=== PATIENT | male | born 1950 | race Caucasian/White ===

== ENCOUNTER → 2020-02-25 09:13 | Outpatient (BNVA) | payer MEDICARE, SELFPAY | PROVIDERS: Visit Provider Nurse Practitioner | DX: S81.001A Unspecified open wound, right knee, initial encounter (principal); X58.XXXA Exposure to other specified factors, initial encounter | CPT/HCPCS: 73562 ==

== ENCOUNTER 2020-06-10 13:12 | Outpatient (CLI) | payer MEDICARE, SELFPAY | END 2020-06-10 13:13 | disposition home or self-care (01) | PROVIDERS: Visit Provider Emergency Medicine | DX: E11.622 Type 2 diabetes mellitus with other skin ulcer (principal); L97.812 Non-pressure chronic ulcer of other part of right lower leg with fat layer exposed | CPT/HCPCS: G0463 ==

== ENCOUNTER 2020-08-31 09:16 | Outpatient (CLI) | payer MEDICARE, SELFPAY ==
--- NOTE | 2020-08-31 09:30 | USCV_ITS ---
Chet Medina Age: 70 Gender: M : 1950 Exam Date: 08/31/2020 09:53 Ordering Phys: Eli Ramirez MD ([email or web address]) Technologist: Jeromy Sanabria [place] [facility] [place] Indication: SOB AND OLD NV BP: 121 / 67 HR: 66 Rhythm: Sinus Technical Quality: Adequate MEASUREMENTS (Male / Female) Normal Values 2D ECHO LV Diastolic Diameter PLAX 4.2 cm 4.2 - 5.9 / 3.9 - 5.3 cm LV Systolic Diameter PLAX 2.1 cm IVS Diastolic Thickness 0.9 cm 0.6 - 1.0 / 0.6 - 0.9 cm IVS Systolic Thickness 1.4 cm LVPW Diastolic Thickness 1.0 cm 0.6 - 1.0 / 0.6 - 0.9 cm LVPW Systolic Thickness 1.3 cm LVOT Diameter 2.0 cm LV Ejection Fraction 2D Teich 80.7 % LV Ejection Fraction MOD 2C 71.2 % LV Ejection Fraction 2C AL 71.5 % LA Diameter 2.9 cm LA Width 3.7 cm LA Height 3.5 cm RA Width 3.3 cm RA Height 3.5 cm M-MODE LV Diastolic Diameter MM 6.1 cm 4.2 - 5.9 / 3.9 - 5.3 cm LV Systolic Diameter MM 4.4 cm LV Ejection Fraction MM Teich 53.7 % IVS Diastolic Thickness MM 1.1 cm 0.6 - 1.0 / 0.6 - 0.9 cm IVS Systolic Thickness MM 1.4 cm LVPW Diastolic Thickness MM 0.9 cm 0.6 - 1.0 / 0.6 - 0.9 cm LVPW Systolic Thickness MM 1.5 cm RV Diastolic Diameter MM 2.1 cm Aortic Annulus Diameter 3.3 cm LA Ao Ratio MM 0.9 MV E Point Septal Separation 0.7 cm DOPPLER AV Peak Velocity 80.0 cm/s LVOT Peak Velocity 99.0 cm/s AV Area Cont Eq vti 4.2 cm squared AV Area Cont Eq pk 3.9 cm squared MV Area PHT 4.3 cm squared Mitral E to A Ratio 0.7 MV E' Velocity 34.5 cm/s Mitral E to MV E' Ratio 6.4 Mitral E to LV E' Lateral Ratio 5.7 Mitral E to LV E' Septal Ratio 7.4 TR Peak Velocity 138.7 cm/s TR Peak Gradient 7.7 mmHg TV Peak E Velocity 69.0 cm/s Right Atrial Pressure 3.0 mmHg Pulmonary Artery Systolic Pressu 10.7 mmHg PV Peak Velocity 103.0 cm/s FINDINGS Left Ventricle Normal left ventricular size and systolic function, EF 69 %. No regional wall motion abnormalities. Mild left ventricular hypertrophy. Grade I/IV diastolic dysfunction (abnormal relaxation filling pattern), normal to mildly elevated filling pressures. Right Ventricle The right ventricle is normal in size and function. Right Atrium The right atrium is normal in size. Left Atrium No gross abnormalities noted Mitral Valve No gross abnormalities noted Aortic Valve No gross abnormalities noted Tricuspid Valve No gross abnormalities noted Pulmonic Valve Structurally normal pulmonic valve without significant stenosis. There is no pulmonic regurgitation. Pericardium No pericardial effusion. Aorta Normal ascending aorta dimension. CONCLUSIONS Normal left ventricular size and systolic function, EF 69 %. No regional wall motion abnormalities. Mild left ventricular hypertrophy. Grade I/IV diastolic dysfunction (abnormal relaxation filling pattern), normal to mildly elevated filling pressures. No intracardiac masses. No pericardial effusion. No similar previous studies are available for comparison Dr Eli Ramirez MD [facility] (Electronically Signed) Final Date: 31 August 2020 17:12 S
--- NOTE | 2020-08-31 10:15 | USCV_ITS ---
Chet Medina Age: 70 Gender: M : 1950 Exam Date: 08/31/2020 09:38 Ordering Phys: Eli Ramirez MD ([email or web address]) Technologist: Jeromy Sanabria [place] [facility] [place]: CVA Risk Factors: Previous Vascular Surgery: Right Brachial BP: / Left Brachial BP: / Right Left Velocity (cm/s) Spectral Plaque Velocity (cm/s) Spectral Plaque Syst/Diast Broadening Syst/Diast Broadening 80.35/ 18.15 Prox CCA 65.10 / 20.60 67.50/ 16.40 Mid CCA 60.10 / 17.30 68.80/ 13.60 Distal CCA 62.60 / 17.30 52.80/ 10.60 Prox ICA 126.20/ 28.50 76.80/ 19.20 Mid ICA 100.70/ 31.50 84.50/ 19.20 Distal ICA 109.70/ 36.10 96.00 ECA 142.70 1.23 ICA/CCA 1.94 Antegrade Vertebral Antegrade 39.50/ 12.30 cm/s 83.60/ 22.10 cm/s Tri Subclavian Tri 94.70 47.60 FINDINGS Mild to moderate heterogeneous plaques at the right bifurcation. Mild to moderate scattered plaques in the common carotid artery on the right side. Moderate to heavy heterogeneous plaques at the left bifurcation and proximal internal carotid artery Mild to moderate scattered plaques in the common carotid artery on the left side Antegrade flow in the vertebral arteries bilaterally. CONCLUSIONS Mild to moderate heterogeneous plaques at the right bifurcation with elevated velocity ratio suggestive of 16-49 % stenosis. Moderate to heavy heterogeneous plaques at the left bifurcation and proximal internal carotid arterywith velocity elevation consistent with 50-79% stenosis. Mild to moderate scattered plaques in the common carotid arteries bilaterally No previous studies are available for comparison. Dr Eli Ramirez MD [facility] (Electronically Signed) Final Date: 31 August 2020 19:34 S
== END 2020-08-31 09:17 | disposition home or self-care (01) ==
PROVIDERS: PCP Internal Medicine; Visit Provider Internal Medicine Cardiovascular Disease
DX: I63.9 Cerebral infarction, unspecified (principal); I65.23 Occlusion and stenosis of bilateral carotid arteries; I25.2 Old myocardial infarction; R06.02 Shortness of breath; I51.81 Takotsubo syndrome
CPT/HCPCS: 93306; 93880

== ENCOUNTER 2020-11-23 08:59 | Outpatient (CLI) | payer MEDICARE, SELFPAY ==
[2020-11-23 09:20] VITALS: BMI 18.9
--- NOTE | 2020-11-23 09:24 | ECG_ITS ---
[facility] Test Date: 2020-11-23 Pat Name: Chet Medina Department: Room: Gender: Male : : 1950 Requested By: Eli Ramirez Order Number: [id number] Dileep MD: Eli Ramirez M.D. Interpretive Statements NAME OF STUDY: LEXISCAN SESTAMIBI STRESS TEST INDICATION: Old Myocardial Infarction, PROCEDURE: At the baseline, the EKG revealed normal sinus rhythm with some nonspecific ST-T changes.. The baseline blood pressure was 181/112 mm Hg with a heart rate of 70 beats/min. Lexiscan was infused over a period of 20 seconds. A total of 0.4 milligrams of Lexiscan was infused. The stress phase was continued for a total of 5 minutes. Heart rate at the end of the stress phase was 79 with a blood pressure 161/79. The EKG at the peak infusion revealed some nonspecific changes. Sestamibi was injected 20 seconds after the Lexiscan infusion. Blood pressure at the end of the recovery phase was 152/84 with a heart rate of 77 per minute. CONCLUSION: 1. Nonspecific EKG changes with the LexiScan infusion 2. No LexiScan induced chest pain or cardiac arrhythmia 3. Normal blood pressure and heart rate response 4. Sestamibi/sestamibi perfusion scan pending; see separate report. Electronically Signed On 11-23-2020 15:46:54 LINK MACHINE OPERATOR by Eli Ramirez M.D. [id number]
--- NOTE | 2020-11-23 09:25 | NMCV_ITS ---
NM faustino perf SPECT r/s* [id number] Chet Medina Age: 70 Gender: M : 1950 Exam Date: 11/23/2020 10:46 Ordering Phys: Eli Ramirez MD ([email or web address]) Technologist: TWYLA Rodriguez Exam Location: [facility] Indications: ABNORMAL EKG STRESS TEST Please [facility] for [facility] IMAGE PROTOCOL Rest/Stress 1 Lexiscan Day Radiopharmaceutical Dose (mCi) Administration Site Administered by Rest: Tc-99m 11.0 IV TWYLA Rodriguez Sestamibi Stress:Tc-99m 32.6 IV TWYLA Nayak Sestamibi Rest: 23-Nov-2020 60 Discovery 630 Stress: 23-Nov-2020 30 Discovery 630 0.4mg Lexiscan. Images obtained in supine and prone position. SPECT RESULTS Technical Quality: Good Raw Data Analysis: Normal Image Corrections: No attenuation or motion correction applied Summed Stress Score: 9 Summed Rest Score: 4 Summed Difference Score: 7 PERFUSION FINDINGS Moderate area of moderately severe decreased tracer uptake were noted in the mid and apical inferior, mid inferoseptal, mid inferolateral, apical lateral and apical septal segments. Some reversibility was noted in all the segments with the supine imaging. However the prone imaging, no significant reversible defects were noted. FUNCTIONAL RESULTS (calculated via Gated SPECT) Stress Image LV EF (%): 74 Stress EDV (mL):78 TID: 0.94 Stress ESV (mL):20 FUNCTIONAL FINDINGS: Segmental wall motion analysis revealing no gross wall motion normalities. IMPRESSIONS 1. Myocardial perfusion imaging revealing moderate area of inconsistent reversible defect in the inferolateral, inferoseptal and apical regions, most likely represent attenuation artifact. 2. Normal LV ejection fraction of 74%. 3. LV wall motion analysis revealing no gross wall motion abnormalities. 4. Normal LV volume. Possibly no significant coronary ischemia, based on the above findings. However clinical correlation is recommended Dr Eli Ramirez MD [facility] (Electronically Signed) Final Date: 24 November 2020 02:06 S
[2020-11-23] MEDS: regadenoson 0.4 Mg/5 ml Syringe IVP (11:34)
[2020-11-23 12:00] VITALS: BP 152/84; PULSE 77
== END 2020-11-23 09:00 | disposition home or self-care (01) ==
PROVIDERS: PCP Internal Medicine; Visit Provider Internal Medicine Cardiovascular Disease
DX: R94.31 Abnormal electrocardiogram [ECG] [EKG] (principal); I25.2 Old myocardial infarction; E78.5 Hyperlipidemia, unspecified; I25.10 Atherosclerotic heart disease of native coronary artery without angina pectoris
CPT/HCPCS: 78452; 93017; A9500; J2785

== ENCOUNTER → 2021-01-01 12:08 | Outpatient (BNVA) | payer MEDICARE, SELFPAY | PROVIDERS: PCP Internal Medicine; Visit Provider Orthopaedic Surgery | DX: Z20.822 Contact with and (suspected) exposure to COVID-19 (principal); Z01.812 Encounter for preprocedural laboratory examination | CPT/HCPCS: 87635 ==

== ENCOUNTER → 2021-02-05 14:28 | Outpatient (BNVA) | payer MEDICARE, SELFPAY | PROVIDERS: PCP Internal Medicine; Visit Provider Orthopaedic Surgery | DX: Z20.822 Contact with and (suspected) exposure to COVID-19 (principal) | CPT/HCPCS: 87635 ==

== ENCOUNTER 2023-02-10 14:54 | Emergency (ER) | payer MEDICARE, SELFPAY ==
[2023-02-10 14:55] VITALS: BP 120/66; PULSE 104; RESP 16; TEMP 36.7; O2SAT 93; BMI 16.0
--- NOTE | 2023-02-10 15:23 | ED_ITS ---
Documented by User: TORIN Farmer 02/10/23 16:19 HPI - Back Pain/Injury General: Chief Complaint: Back Pain/Injury Stated Complaint: CHRONIC BACK PAIN Time Seen by Provider: 02/10/23 14:55 Source: patient and EMS Mode of arrival: EMS Limitations: no limitations History of Present Illness: Patient is a nice 72-year-old male who presents to ED today with two separate complaints. He complains of chronic back pains. Patient reports significant previous injuries. He states he takes hydrocodone 10 mg / 325 mg as needed for pain. He has been seeing a chiropractor. He states he is out of his pain medications and it is hard to get into his PCP Dr. Cobb as he is only in office 2 days a week. Patient's other complaint is right knee pain. He states he had hardware placed in the knee for a tibial plateau fracture in 2007. He states at some point he developed a small wound on the knee and since then it has progressively opened and worsened. He states he has had exposed hardware for over a year now. In [address] Jerome as the hardware was starting to erode at that time. Plan was for surgery but patient needed cardiac clearance first. It looks like he did do all of the cardiac testing needed for surgery. Patient states when he showed up for the surgery he did not have a ride home so they canceled it. He states he has not had any further evaluations for the knee since 2019. He states the pain is getting to the point where it is making it hard to ambulate and take care of himself. MD elicited complaint: back pain and other (R knee pain) Onset (ago): year(s) Timing: constant Severity: moderate Similar Symptoms Previously: Yes Location: lumbar spine Radiation: none Associated symptoms: Reports difficulty walking (secondary to knee/back pain); Deny abdominal pain, chills, fatigue or fever(s) Treatments prior to arrival: prescription analgesics Work related injury: No Review of Systems Const: Denies: fever(s), chills, body aches, fatigue or malaise Card: Denies: chest pain Resp: Denies: dyspnea GI: Denies: abdominal pain Musc: Reports: back pain (chronic), joint pain (R knee) and limited range of motion (R knee-chronically ); Denies: neck pain, extremity pain, extremity swelling, joint swelling, joint redness or joint warmth Neuro: Reports: difficulty walking (secondary to knee/back pain); Denies: numbness in extremities, weakness in extremities or sensory changes PFSH ED PFSH: Medical History (Updated 02/10/23 @ 17:44 by TRACIE Gregory) Anticoagulant long-term use Asthma Carotid stenosis COPD (chronic obstructive pulmonary disease) with emphysema Dyslipidemia History of CVA (cerebrovascular accident) Hypertension Old myocardial infarction The EKG from 08/05/2020 revealed sinus rhythm with some nonspecific ST-T changes in the inferior leads. Normal ME and QRS duration. Surgical History History of fracture of tibia Plate and screws proximal at knee History of hernia repair History of hip surgery left History of surgery on arm left Family History Other Cancer Diabetes Hypertension Lung disease Stroke Denies family history of Dementia Social History Smoking and tobacco status: current every day smoker Second hand smoke exposure: Yes Smoking risk assessment/counseling performed?: Yes Desire information about substance/drug rehabilitation?: No Counseling given: No Adopted: No Caregiver/support person: No Lives independently: Yes Household members: none Housing: House Marital status: Single service: Yes status: Retired branch: [employer] Current occupational status: retired Current gender identity: Male Physical Exam Const: COMMON NORMALS: no acute distress, patient oriented x3, no limitations, alert and well nourished GENERAL APPEARANCE: cooperative ORIENTATION/CONSCIOUSNESS: Yes awake, Yes oriented to person, Yes oriented to place and Yes oriented to time HENMT: COMMON NORMALS: normocephalic and atraumatic HEAD & SCALP: normal to inspection, normocephalic and atraumatic Neck/C-Spine: COMMON NORMALS: full ROM GENERAL: Yes normal visual inspection Resp: COMMON NORMALS: normal respiratory effort and clear to auscultation bilaterally AUSCULTATION: clear to auscultation bilaterally Cardio: COMMON NORMALS: regular rate and regular rhythm RATE: regular rate RHYTHM: regular rhythm Back/Pelvis: THORACIC SPINE/UPPER BACK: No thoracic spinal tenderness and No paraspinal muscle tenderness LUMBAR SPINE/LOWER BACK: Yes pain with ROM, Yes lumbar spinal tenderness, Yes paraspinal muscle tenderness and Yes straight leg raise negative bilaterally Extremity: GENERAL: Yes normal exam except as noted RIGHT LOWER EXTREMITY: Yes knee joint (pt with chronic flexion deformity of knee) Right knee: Yes inspection (large portion of exposed hardware present), Yes neurovascular exam (normal) and Yes other (no drainage or significant redness) Neuro: COMMON NORMALS: patient oriented x3 SENSORIUM/ORIENTATION: Yes alert, Yes oriented to person, Yes oriented to place and Yes oriented to time Course Vital Signs: Vital signs: Vital Signs Temperature 98.1 F 02/10/23 14:55 Pulse Rate 104 H 02/10/23 14:55 Respiratory Rate 16 02/10/23 14:55 Blood Pressure 120/66 02/10/23 14:55 Pulse Oximetry 93 02/10/23 14:55 Oxygen Delivery Me thod 02/10/23 14:55 MDM - Back Pain/Injury Labs 02/10/23 17:06 02/10/23 17:06 Radiology Impressions Knee X-Ray 02/10/23 16:08 IMPRESSION: Tibial surgical appliances as above. Laboratory Results WBC 7.2 10^3/uL (4.0-10.0) 02/10/23 17:06 RBC 3.56 10^6/uL (4.1-5.3) L 02/10/23 17:06 Hgb 9.8 g/dL (11.7-16.6) L 02/10/23 17:06 Hct 30.8 % (42.0-52.0) L 02/10/23 17:06 MCV 86.5 fl (80-94) 02/10/23 17:06 MCH 27.5 pg (28.0-34.0) L 02/10/23 17:06 MCHC 31.8 g/dL (30.0-36.0) 02/10/23 17:06 RDW 14.1 % (12.1-15.1) 02/10/23 17:06 Plt Count 221 10^3/cmm (130-400) 02/10/23 17:06 MPV 11.6 fL (7.4-10.4) H 02/10/23 17:06 Neut % (Auto) 72.5 % 02/10/23 17:06 Lymph % (Auto) 18.6 % 02/10/23 17:06 [place] % (Auto) 7.1 % 02/10/23 17:06 Eos % (Auto) 0.7 % 02/10/23 17:06 Baso % (Auto) 0.4 % 02/10/23 17:06 Neut # (Auto) 5.22 10^3/uL (1.8-7.7) 02/10/23 17:06 Lymph # (Auto) 1.3 10^3/uL (0.8-4.8) 02/10/23 17:06 [place] # (Auto) 0.5 10^3/uL (0.2-0.9) 02/10/23 17:06 Eos # (Auto) 0.1 10^3/uL (0.0-0.8) 02/10/23 17:06 Baso # (Auto) 0.0 10^3/uL (0.0-0.1) 02/10/23 17:06 Nucleated RBC % (auto) 0 % 02/10/23 17:06 Nucleated RBCs # 0.0 /100WBC 02/10/23 17:06 Sodium 137 mmol/L (136-145) 02/10/23 17:06 Potassium 3.4 mmol/L (3.5-5.1) L 02/10/23 17:06 Chloride 97 mmol/L (98-107) L 02/10/23 17:06 Carbon Dioxide 27 mmol/L (22-29) 02/10/23 17:06 Anion Gap 16.4 (5-19) 02/10/23 17:06 BUN 13 mg/dL (8-23) 02/10/23 17:06 Creatinine 0.5 mg/dL (0.7-1.2) L 02/10/23 17:06 GFR Calculation Not Reportable 02/10/23 17:06 Glucose 106 mg/dL (65-115) 02/10/23 17:06 Calculated Osmolality 285 mOsm/kg (285-295) 02/10/23 17:06 Calcium 8.8 mg/dL (8.5-10.5) 02/10/23 17:06 Total Bilirubin 0.9 mg/dL (0.15-1.2) 02/10/23 17:06 AST 16 U/L (0-40) 02/10/23 17:06 ALT 9 U/L (0-41) 02/10/23 17:06 Alkaline Phosphatase 68 U/L (40-130) 02/10/23 17:06 C-Reactive Protein 100.4 mg/L (0.0-4.9) H 02/10/23 17:06 Total Protein 6.6 g/dL (6.6-8.7) 02/10/23 17:06 Albumin 3.6 g/dL (3.5-5.2) 02/10/23 17:06 Globulin 3.0 g/dL (1.3-4.6) 02/10/23 17:06 Discharge Plan Discharge Patient Disposition: Home Clinical Impression: Lumbar back pain, Orthopedic device, implant, or graft complication, Impaired mobility and activities of daily living Condition: Stable Prescriptions: Continued hydrocodone-acetaminophen 10-325 mg tablet 1 tab PO TID PRN (Reason: pain (scale score 7-10)) Qty: 12 0RF No Action warfarin [Coumadin] 5 mg tablet 5 mg PO DAILY potassium chloride 40 mEq/15 mL Liquid 40 meq PO DAILY Discharge Orders: Discharge ED (Routine); Ordered 02/10/23 Ordered By: Richard Osorio Other Ambulatory Orders: DME: Miscellaneous (Order) Location: None Selected Ordered By: Richard Osorio Referrals: Serafin Cobb DO [Primary Care Provider] - Discharge Diet: Usual diet Discharge Activity: Increase activity as tolerated Patient Instructions: Opioid Safety, Pain Management Activity Restrictions/Additional Instructions: Home and rest. Activity as tolerated. Use wheelchair to get around in the home for your ADLs. Follow-up with primary care on Monday for further treatment and evaluation. Case management will contact you regarding follow-up appointment with information management specialist, Dr. Jerome, regarding leg. Return to the ER for worsening symptoms such as fever greater than 100.4, inability to hold fluids, or uncontrolled pain. Sign Out Sign Out Data: Patient Sign Out occurred on 02/10/23 at 17:24. Patient's care was discussed, and care was transferred from to Richard Osorio. Coding Level of Care Code ED Waiter/Waitress Informal for Chg Fwd Documented by User: TRACIE Gregory 02/10/23 18:08 HPI - Back Pain/Injury General: Chief Complaint: Back Pain/Injury Stated Complaint: CHRONIC BACK PAIN Time Seen by Provider: 02/10/23 14:55 PFSH ED PFSH: Medical History (Updated 02/10/23 @ 17:44 by TRACIE Gregory) Anticoagulant long-term use Asthma Carotid stenosis COPD (chronic obstructive pulmonary disease) with emphysema Dyslipidemia History of CVA (cerebrovascular accident) Hypertension Old myocardial infarction The EKG from 08/05/2020 revealed sinus rhythm with some nonspecific ST-T change s in the inferior leads. Normal ME and QRS duration. Surgical History History of fracture of tibia Plate and screws proximal at knee History of hernia repair History of hip surgery left History of surgery on arm left Family History Other Cancer Diabetes Hypertension Lung disease Stroke Denies family history of Dementia Social History Smoking and tobacco status: current every day smoker Second hand smoke exposure: Yes Smoking risk assessment/counseling performed?: Yes Desire information about substance/drug rehabilitation?: No Counseling given: No Adopted: No Caregiver/support person: No Lives independently: Yes Household members: none Housing: House Marital status: Single service: Yes status: Retired branch: [employer] Current occupational status: retired Current gender identity: Male Course ED course: 1720, reviewed patient with Dr. Coto who recommended patient follow-up with information management specialist and plastic surgery for further treatment and evaluation. I discussed this with patient who did not want to go to information management specialist in [place]. I offered to have him follow back up with Dr. Jerome who had seen in the past for the same complaint. Patient reported he would go ahead and see him again. Patient reported difficulty getting around the home and requested a wheelchair. Due to patient's more difficulty of mobility we went ahead and ordered a wheelchair for the patient. Vital Signs: Vital signs: Vital Signs Temperature 98.1 F 02/10/23 14:55 Pulse Rate 104 H 02/10/23 14:55 Respiratory Rate 16 02/10/23 14:55 Blood Pressure 120/66 02/10/23 14:55 Pulse Oximetry 93 02/10/23 14:55 Oxygen Delivery Me thod 02/10/23 14:55 MDM - Back Pain/Injury Medical Decision Making Patient came in today due to persistent low back pain. Patient was having difficulty ambulating due to his chronic back pain. On exam it was noted that patient had some exposed hardware to his right lower leg from a repair of the tib-fib. Patient had last been seen for this by Dr. Jerome approximately 2 years ago. Patient states that due to him having use canes he is unable to walk appropriately and it causes his back to hurt. Patient does take hydrocodone occasionally for his pain control. Patient reports no fever. Lungs are clear to auscultation. Patient is slightly pale. Differential diagnosis includes osteomyelitis, chronic back pain, mobility issues. Wound looks unremarkable. Patient does have exposed hardware to the wound. X-ray noted no signs of osteomyelitis at this time. CBC had a 7.2 white count. CRP was slightly elevated at 100. Patient is anemic with a hemoglobin 9.8. Patient's case was reviewed with Dr. Coto who recommended information management specialist and plastic surgeon possibly out of [place]. Araceli Patel did also talk to Dr. Jerome prior to Dr. Coto whom she thought was on-call. Dr. Jerome recommended further evaluation in orthopedics for possibility removal of hardware/amputation. I reviewed the recommendations by Dr. Coto and Dr. Jerome patient at this time a greed to follow-up with Dr. Jerome but was not wanting amputation. Case management will be recommended to follow-up with Dr. Jerome at this time for further evaluation and treatment. Labs 02/10/23 17:06 02/10/23 17:06 Radiology Impressions Knee X-Ray 02/10/23 16:08 IMPRESSION: Tibial surgical appliances as above. Laboratory Results WBC 7.2 10^3/uL (4.0-10.0) 02/10/23 17:06 RBC 3.56 10^6/uL (4.1-5.3) L 02/10/23 17:06 Hgb 9.8 g/dL (11.7-16.6) L 02/10/23 17:06 Hct 30.8 % (42.0-52.0) L 02/10/23 17:06 MCV 86.5 fl (80-94) 02/10/23 17:06 MCH 27.5 pg (28.0-34.0) L 02/10/23 17:06 MCHC 31.8 g/dL (30.0-36.0) 02/10/23 17:06 RDW 14.1 % (12.1-15.1) 02/10/23 17:06 Plt Count 221 10^3/cmm (130-400) 02/10/23 17:06 MPV 11.6 fL (7.4-10.4) H 02/10/23 17:06 Neut % (Auto) 72.5 % 02/10/23 17:06 Lymph % (Auto) 18.6 % 02/10/23 17:06 [place] % (Auto) 7.1 % 02/10/23 17:06 Eos % (Auto) 0.7 % 02/10/23 17:06 Baso % (Auto) 0.4 % 02/10/23 17:06 Neut # (Auto) 5.22 10^3/uL (1.8-7.7) 02/10/23 17:06 Lymph # (Auto) 1.3 10^3/uL (0.8-4.8) 02/10/23 17:06 [place] # (Auto) 0.5 10^3/uL (0.2-0.9) 02/10/23 17:06 Eos # (Auto) 0.1 10^3/uL (0.0-0.8) 02/10/23 17:06 Baso # (Auto) 0.0 10^3/uL (0.0-0.1) 02/10/23 17:06 Nucleated RBC % (auto) 0 % 02/10/23 17:06 Nucleated RBCs # 0.0 /100WBC 02/10/23 17:06 Sodium 137 mmol/L (136-145) 02/10/23 17:06 Potassium 3.4 mmol/L (3.5-5.1) L 02/10/23 17:06 Chloride 97 mmol/L (98-107) L 02/10/23 17:06 Carbon Dioxide 27 mmol/L (22-29) 02/10/23 17:06 Anion Gap 16.4 (5-19) 02/10/23 17:06 BUN 13 mg/dL (8-23) 02/10/23 17:06 Creatinine 0.5 mg/dL (0.7-1.2) L 02/10/23 17:06 GFR Calculation Not Reportable 02/10/23 17:06 Glucose 106 mg/dL (65-115) 02/10/23 17:06 Calculated Osmolality 285 mOsm/kg (285-295) 02/10/23 17:06 Calcium 8.8 mg/dL (8.5-10.5) 02/10/23 17:06 Total Bilirubin 0.9 mg/dL (0.15-1.2) 02/10/23 17:06 AST 16 U/L (0-40) 02/10/23 17:06 ALT 9 U/L (0-41) 02/10/23 17:06 Alkaline Phosphatase 68 U/L (40-130) 02/10/23 17:06 C-Reactive Protein 100.4 mg/L (0.0-4.9) H 02/10/23 17:06 Total Protein 6.6 g/dL (6.6-8.7) 02/10/23 17:06 Albumin 3.6 g/dL (3.5-5.2) 02/10/23 17:06 Globulin 3.0 g/dL (1.3-4.6) 02/10/23 17:06 Discharge Plan Discharge Patient Disposition: Home Clinical Impression: Lumbar back pain, Orthopedic device, implant, or graft complication, Impaired mobility and activities of daily living Condition: Stable Prescriptions: Continued hydrocodone-acetaminophen 10-325 mg tablet 1 tab PO TID PRN (Reason: pain (scale score 7-10)) Qty: 12 0RF No Action warfarin [Coumadin] 5 mg tablet 5 mg PO DAILY potassium chloride 40 mEq/15 mL Liquid 40 meq PO DAILY Discharge Orders: Discharge ED (Routine); Ordered 02/10/23 Ordered By: Richard Osorio Other Ambulatory Orders: DME: Miscellaneous (Order) Location: None Selected Ordered By: Richard Osorio Referrals: Serafin Cobb DO [Primary Care Provider] - Discharge Diet: Usual diet Discharge Activity: Increase activity as tolerated Patient Instructions: Opioid Safety, Pain Management Activity Restrictions/Additional Instructions: Home and rest. Activity as tolerated. Use wheelchair to get around in the home for your ADLs. Follow-up with primary care on Monday for further treatment and evaluation. Case management will contact you regarding follow-up appointment with information management specialist, Dr. Jerome, regarding leg. Return to the ER for worsening symptoms such as fever greater than 100.4, inability to hold fluids, or uncontrolled pain. Sign Out Sign Out Data: Patient Sign Out occurred on 02/10/23 at 17:24. Patient's care was discussed, and care was transferred from to Richard Osorio. Coding Level of Care Code ED Waiter/Waitress Informal for Miki Singh
--- NOTE | 2023-02-10 16:08 | XR_ITS ---
WS: [id number] XR knee RT 3V* [id number] REASON FOR EXAM: pain/exposed hardware FINDINGS: Significantly decreased bone density. Medial and lateral plate and screw fixation of the proximal tibia. There is separation of both plates from the cortex of the tibia. Several of the more distal screws fixing the lateral plate to the tibi al diaphysis. Penetrate several millimeters beyond the medial cortex of the tibia. The proximal porti on of the surgical appliances are unchanged compared to 07/27/2020. There was no demonstration of the distal aspect of the appliances on the previous examination. No fracture or bone destruction is noted. Significant osteoarthritis in the knee joint. XR/XR knee RT 3V* [id number] IMPRESSION: Tibial surgical appliances as above.
[2023-02-10 17:30] LABS: Basophils % 0.4 %; Eosinophils # 0.1 10^3/uL (0.0-0.8); Eosinophils % 0.7 %; Hematocrit 30.8 % (42.0-52.0); Hemoglobin 9.8 g/dL (11.7-16.6); Lymphocytes # 1.3 10^3/uL (0.8-4.8); Lymphocytes % 18.6 %; Mean Corpuscular HGB Conc 31.8 g/dL (30.0-36.0); Mean Corpuscular Hemoglobin 27.5 pg (28.0-34.0); Mean Corpuscular Volume 86.5 fl (80-94); Mean Platelet Volume 11.6 fL (7.4-10.4); Monocytes # 0.5 10^3/uL (0.2-0.9); Monocytes % 7.1 %; Neutrophils # 5.22 10^3/uL (1.8-7.7); Neutrophils % 72.5 %; Nucleated Red Blood Cells % 0 %; Platelet Count 221 10^3/cmm (130-400); Red Blood Count 3.56 10^6/uL (4.1-5.3); Red Cell Distribution Width 14.1 % (12.1-15.1); White Blood Count 7.2 10^3/uL (4.0-10.0)
[2023-02-10 17:54] LABS: Alanine Aminotransferase 9 U/L (0-41); Albumin Level 3.6 g/dL (3.5-5.2); Alkaline Phosphatase 68 U/L (40-130); Anion Gap 16.4 (5-19); Aspartate Amino Transferase 16 U/L (0-40); Blood Urea Nitrogen 13 mg/dL (8-23); C Reactive Protein 100.4 mg/L (0.0-4.9); Calcium 8.8 mg/dL (8.5-10.5); Carbon Dioxide 27 mmol/L (22-29); Chloride 97 mmol/L (98-107); Glucose 106 mg/dL (65-115); Osmolality Calculated 285 mOsm/kg (285-295); Potassium 3.4 mmol/L (3.5-5.1); Sodium 137 mmol/L (136-145); Total Bilirubin 0.9 mg/dL (0.15-1.2); Total Protein 6.6 g/dL (6.6-8.7)
[2023-02-10 18:01] LABS: Creatinine Clr Calc Pharmacy 60.8566
--- NOTE | 2023-02-13 09:34 | DCPLANNER ---
Addendum entered by Pili Waggoner 03/01/23 15:41: Patient had a follow up appointment scheduled with ortho - patient did attend appointment Addendum entered by Pili Waggoner 02/14/23 08:16: Patient has a follow up appointment scheduled for Tuesday, February 21, 2023 at 1:[address] Jerome at ortho. Clinic will call patient with appointment information. Original Note: coffee shop manager had message to schedule a follow up appointment for patient with ortho. coffee shop manager sent patients information to the front office staff at ortho. Patients information will be printed and reviewed. Clinic will call patient with appointment information.
== END 2023-02-10 18:48 | disposition home or self-care (01) ==
PROVIDERS: Physician Assistant; Emergency Provider Nurse Practitioner Family; PCP Internal Medicine
DX: M54.50 Low back pain, unspecified (principal); Z74.09 Other reduced mobility; J44.9 Chronic obstructive pulmonary disease, unspecified; E78.5 Hyperlipidemia, unspecified; Z86.73 Personal history of transient ischemic attack (TIA), and cerebral infarction without residual deficits; I10 Essential (primary) hypertension; I25.2 Old myocardial infarction; F17.210 Nicotine dependence, cigarettes, uncomplicated; T84.89XA Other specified complication of internal orthopedic prosthetic devices, implants and grafts, initial encounter; Y79.8 Miscellaneous orthopedic devices associated with adverse incidents, not elsewhere classified
CPT/HCPCS: 36415; 73562; 80053; 85025; 86140; 87040; 99284

== ENCOUNTER → 2023-03-01 10:27 | Outpatient (BNVA) | payer MEDICARE, SELFPAY | PROVIDERS: PCP Internal Medicine; Visit Provider Orthopaedic Surgery | DX: T84.7XXA Infection and inflammatory reaction due to other internal orthopedic prosthetic devices, implants and grafts, initial encounter (principal); Y79.2 Prosthetic and other implants, materials and accessory orthopedic devices associated with adverse incidents | CPT/HCPCS: 99203 ==

== ENCOUNTER → 2023-05-09 11:39 | Outpatient (BNVA) | payer MEDICARE, SELFPAY | PROVIDERS: PCP Internal Medicine; Visit Provider Internal Medicine Cardiovascular Disease | DX: I65.23 Occlusion and stenosis of bilateral carotid arteries (principal); Z86.73 Personal history of transient ischemic attack (TIA), and cerebral infarction without residual deficits; T84.7XXA Infection and inflammatory reaction due to other internal orthopedic prosthetic devices, implants and grafts, initial encounter; Y99.9 Unspecified external cause status; E78.5 Hyperlipidemia, unspecified; I25.2 Old myocardial infarction; Z79.01 Long term (current) use of anticoagulants; I10 Essential (primary) hypertension | CPT/HCPCS: 99214 ==

== ENCOUNTER → 2023-05-18 13:54 | Outpatient (BNVA) | payer MEDICARE, SELFPAY | PROVIDERS: PCP Internal Medicine; Visit Provider Family Medicine | DX: T84.7XXA Infection and inflammatory reaction due to other internal orthopedic prosthetic devices, implants and grafts, initial encounter (principal); Y83.8 Other surgical procedures as the cause of abnormal reaction of the patient, or of later complication, without mention of misadventure at the time of the procedure; E78.5 Hyperlipidemia, unspecified; Z79.01 Long term (current) use of anticoagulants; I10 Essential (primary) hypertension; I48.91 Unspecified atrial fibrillation; I65.23 Occlusion and stenosis of bilateral carotid arteries | CPT/HCPCS: 80053; 85025; 85610 ==

== ENCOUNTER → 2023-06-08 12:48 | Outpatient (BNVA) | payer MEDICARE, SELFPAY | PROVIDERS: PCP Internal Medicine; Visit Provider Family Medicine | DX: I48.91 Unspecified atrial fibrillation (principal); Z79.01 Long term (current) use of anticoagulants; E11.9 Type 2 diabetes mellitus without complications; T84.7XXA Infection and inflammatory reaction due to other internal orthopedic prosthetic devices, implants and grafts, initial encounter; Y83.8 Other surgical procedures as the cause of abnormal reaction of the patient, or of later complication, without mention of misadventure at the time of the procedure | CPT/HCPCS: 80053; 83036 ==

== ENCOUNTER → 2023-09-12 13:20 | Outpatient (BNVA) | payer MEDICARE, SELFPAY | PROVIDERS: PCP Internal Medicine; Visit Provider Family Medicine | DX: E11.9 Type 2 diabetes mellitus without complications (principal); I10 Essential (primary) hypertension; I48.91 Unspecified atrial fibrillation; Z86.73 Personal history of transient ischemic attack (TIA), and cerebral infarction without residual deficits; I65.23 Occlusion and stenosis of bilateral carotid arteries | CPT/HCPCS: 80053; 85007; 85025; 85610 ==